=== PATIENT | male | born 1985 | race Caucasian/White ===

== ENCOUNTER 2017-09-22 01:26 | Outpatient (CLI) | payer OTHER | END 2017-09-22 01:27 | disposition critical access hospital (66) | LOC: EMS 01:26 | PROVIDERS: ATTEND Surgery | DX: R51 Headache (principal) | CPT/HCPCS: A0425; A0429 ==

== ENCOUNTER 2017-09-22 01:42 | Emergency (ER) | payer OTHER ==
[2017-09-22] MEDS ORDERED: DEXAMETHASONE 10 MG/ML VIAL IVP STA (01:54)
[2017-09-22] MEDS ORDERED: cefTRIAXone 1 GM in SODIUM CHLORIDE 0.9% MINIBAG 100 ML IV STA (01:54)
[2017-09-22] MEDS ORDERED: MECLIZINE 12.5 MG TABLET PO STA (01:55)
--- NOTE | 2017-09-22 02:00 | ED Physician Documentation ---
PD HPI HEADACHE - Stated complaint Stated Complaint: DIZZY/MARTÍNEZ - Chief complaint Chief Complaint: Neuro - History obtained from History obtained from: Patient, Family, EMS - History of Present Illness Timing - onset: Today Timing - onset during: Rest Timing - duration: Hours Timing - details: Gradual onset, Still present, Waxing and waning Location: Front Quality: Throbbing Associated symptoms: Other (left hearing loss and fullness and pressure in the head.). No: Nausea Improved by: Dark room, Quiet Worsened by: Moving Contributing factors: No: Anticoagulated Similar symptoms before: Has not had sx before Recently seen: Surgery - Additional information Additional information: 31-year-old male is been sick for the past 2 weeks with a cough and congestion and sinus pain. He has had a recent surgical removal of a cyst on his right cheek and that appears to be healing well without is issue without drainage or tenderness or pain. Tonight he is developed severe dizziness and hearing loss in the left ear as well as a full full feeling of fullness. He has a severe headache that comes and goes and feels like a balloon blowing up inside of his head. Review of Systems Constitutional: denies: Fever Eyes: denies: Decreased vision Ears: reports: Loss of hearing, Ear pain. denies: Drainage/discharge Nose: reports: Rhinorrhea / runny nose, Congestion, Sinus pressure / pain Throat: reports: Sore throat Cardiac: denies: Chest pain / pressure, Palpitations Respiratory: reports: Cough. denies: Dyspnea GI: denies: Abdominal Pain, Nausea, Vomiting : denies: Dysuria, Frequency Skin: denies: Rash Musculoskeletal: denies: Neck pain, Back pain, Extremity pain Neurologic: reports: Headache, Other (profound dizziness). denies: Generalized weakness, Focal weakness, Numbness, Head injury, LOC PD PAST MEDICAL HISTORY - Past Medical History Past Medical History: No - Past Surgical History Past Surgical History: No - Present Medications Home Medications: Ambulatory Orders Medication Instructions Recorded Confirmed Amox/Clav 875/125 [Augmentin] 1 each PO Q12H #20 tablet 09/22/17 Dexamethasone [Decadron] 4 mg PO DAILY #5 tablet 09/22/17 - Allergies Allergies/Adverse Reactions: Allergies Allergy/AdvReac Type Severity Reaction Status Date / Time No Known Drug Allergies Allergy Verified 09/22/17 01:55 - Social History Does the pt smoke?: No Smoking Status: Never smoker Does the pt drink ETOH?: Yes Does the pt have substance abuse?: No - Immunizations Immunizations are current?: Yes - POLST Patient has POLST: No PD ED PE NORMAL - Vitals Vital signs reviewed: Yes (hypertensive) - General General: Alert and oriented X 3, No acute distress, Well developed/nourished, Other (The patient does have marked dizziness with any movement or sitting up. ) - HEENT HEENT: Atraumatic, PERRL, EOMI, Other (Right TM is inflamed with flatenning of the landmarks. The left is not inflamed with flattening of the landmarks. The pharynx is with 2+ tonsils and dry mucous membranes. There are 3 beats of nystagmus bilaterally. ) - Neck Neck: Supple, no meningeal sign, No bony TTP - Cardiac Cardiac: RRR, No murmur - Respiratory Respiratory: No respiratory distress, Clear bilaterally - Abdomen Abdomen: Soft, Non tender - Back Back: No CVA TTP, No spinal TTP - Derm Derm: Normal color, Warm and dry, No rash - Extremities Extremities: No deformity, No edema - Neuro Neuro: Alert and oriented X 3, client service coordinator 2-12 intact, No motor deficit, No sensory deficit, Normal speech Eye Opening: Spontaneous Motor: Obeys Commands Verbal: Oriented GCS Score: 15 - Psych Psych: Normal mood, Normal affect Results - Vitals Vitals: Vital Signs - 24 hr 09/22/17 09/22/17 09/22/17 01:45 02:41 03:35 Temperature 37.4 C Heart Rate 95 68 94 Respiratory 23 15 24 Rate Blood Pressure 138/92 H 123/78 84/69 L O2 Saturation 100 96 96 09/22/17 03:54 Temperature Heart Rate 76 Respiratory 18 Rate Blood Pressure 112/68 O2 Saturation 99 Oxygen O2 Source Room air - Labs Labs: Laboratory Tests 09/22/17 09/22/17 02:05 02:05 WBC 9.7 RBC 4.30 L Hgb 13.4 L Hct 39.7 L MCV 92.2 MCH 31.2 H MCHC 33.9 RDW 12.8 Plt Count 293 MPV 7.6 Neut # 6.2 Lymph # 2.2 [place] # 1.0 Eos # 0.1 Baso # 0.1 Absolute Nucleated RBC 0.00 Nucleated RBC % 0.0 Sodium 137 Potassium 2.9 L Chloride 107 Carbon Dioxide 21 Anion Gap 9.0 BUN 14 Creatinine 0.8 Estimated GFR (MDRD) 113 Glucose 148 H Calcium 9.0 Total Bilirubin 0.6 AST 13 ALT 15 Alkaline Phosphatase 50 Total Protein 7.3 Albumin 4.1 Globulin 3.2 Albumin/Globulin Ratio 1.3 Lipase 18 L - Rads (name of study) CT head without Radiology: Prelim report reviewed (Impression: 1. Paranasal sinus disease. 2. Otherwise normal head CT.), EMP read indepedently, See rad report CT sinuses Radiology: Prelim report reviewed (Impression: 1. Acute appearing left sphenoid sinus disease.), EMP read indepedently, See rad report Procedures - IVC sono (time) 0155 Bedside IVC sono: IVC measures (cm) (1.87), IVC collapsed c insp (cm) (0.89), Euvolemia PD MEDICAL DECISION MAKING - ED course Complexity details: reviewed results, re-evaluated patient, considered differential, d/w patient, d/w family ED course: 31-year-old male presents with dramatic dizziness and severe ballooning headache associated with a cough and congestion for the past 2 weeks. He was well earlier in the day as far as the dizziness or headache and the headache came on rapidly this evening. He woke from sleep and told his had to go to the hospital. When he arrived here he had nystagmus was profoundly dizzy with any movement of his head and complained of hearing loss in the left ear and pressure. On examination he did have the appearance of right otitis and he was administered intravenous dexamethasone and Rocephin. He had some improvement in his headache with intravenous Toradol and further improvement with intravenous dilaudid. He had marked improvement in his dizziness with use of the meclizine. At the conclusion of his visit he felt marked improvement. I did do testing on his hearing in the left ear with a 512 Hz tuning fork. He was able to hear 4 seconds over the mastoid on the left side and with conduction 30 seconds. On the right ear he was able to hear 13 seconds over the mastoid and 32 seconds by conduction. My interpretation of this is he has normal hearing in the right ear and some sensorineural hearing loss in the left ear and I have asked the patient to follow up with ENT. Departure - Departure Disposition: 01 Home, Self Care Clinical Impression: Sphenoid sinusitis Qualifiers: Chronicity: acute Recurrence: not specified as recurrent Qualified Code(s): J01.30 - Acute sphenoidal sinusitis, unspecified Otitis media Qualifiers: Otitis media type: suppurative Chronicity: acute Laterality: right Recurrence: not specified as recurrent Spontaneous tympanic membrane rupture: without spontaneous rupture Qualified Code(s): H66.001 - Acute suppurative otitis media without spontaneous rupture of ear drum, right ear Hearing loss in left ear Qualifiers: Hearing loss type: sensorineural Contralateral hearing status: unrestricted hearing on contralateral side Qualified Code(s): H90.42 - Sensorineural hearing loss, unilateral, left ear, with unrestricted hearing on the contralateral side Condition: Stable Instructions: ED Otitis Media Acute Adult, ED Sinusitis Abx Tx Follow-Up: [facility] [Provider Group] [facility] [Provider Group] Prescriptions: Amox/Clav 875/125 [Augmentin] 1 each PO Q12H #20 tablet Dexamethasone [Decadron] 4 mg PO DAILY #5 tablet Forms: Activity restrictions Discharge Date/Time: 09/22/17 03:50
[2017-09-22 02:11] LABS: BASOPHILS # (AUTO) 0.1 10^3/uL (0.0-0.1); BASOPHILS % (AUTO) 1.2 %; EOSINOPHILS # (AUTO) 0.1 10^3/uL (0.0-0.7); HCT - HEMATOCRIT 39.7 % (42.0-52.0); HGB - HEMOGLOBIN 13.4 g/dL (14.0-18.0); LYMPHOCYTES # (AUTO) 2.2 10^3/uL (1.5-3.5); LYMPHOCYTES % (AUTO) 23.3 %; MEAN CORPUSCULAR HEMOGLOBIN 31.2 pg (27.0-31.0); MEAN CORPUSCULAR HGB CONC 33.9 g/dL (32.0-36.0); MEAN CORPUSCULAR VOLUME 92.2 fL (80.0-94.0); MEAN PLATELET VOLUME 7.6 fL (7.4-11.4); MONOCYTES % (AUTO) 10.2 %; NEUTROPHILS # (AUTO) 6.2 10^3/uL (1.5-6.6); NEUTROPHILS % (AUTO) 64.3 %; RED CELL DISTRIBUTION WIDTH 12.8 % (12.0-15.0); UNCORRECTED WHITE BLOOD COUNT 9.7 x10^3/uL; WHITE BLOOD COUNT 9.7 x10^3/uL (4.8-10.8)
[2017-09-22 02:22] LABS: ALBUMIN/GLOBULIN RATIO 1.3 (1.0-2.2); BILIRUBIN,TOTAL 0.6 mg/dL (0.2-1.0); CREATININE 0.8 mg/dL (0.6-1.2); POTASSIUM 2.9 mmol/L (3.5-5.0); TOTAL PROTEIN 7.3 g/dL (6.7-8.2)
[2017-09-22] MEDS ORDERED: KETOROLAC 60 MG/2 ML VIAL IVP STA (02:39)
[2017-09-22] MEDS ORDERED: POTASSIUM BICARB 25 MEQ TABLET PO STA (02:40)
[2017-09-22] MEDS ORDERED: ONDANSETRON 4 MG/2 ML VIAL IVP STA (03:10)
[2017-09-22] MEDS ORDERED: HYDROmorphone 1 MG/ML SYRINGE IVP STA (03:10)
--- NOTE | 2017-09-22 03:24 | CT Preliminary Report ---
Exam: CT HEAD W/O IMPRESSION: 1. Paranasal sinus disease. 2. Otherwise normal head CT. [facility] SITE ID: [id number]
--- NOTE | 2017-09-22 03:27 | CT Report ---
EXAM: CT HEAD EXAM DATE: 09/22/2017 02:28 AM. CLINICAL HISTORY: headache , dizziness, hearing loss and pressure . COMPARISON: None. TECHNIQUE: Multiaxial CT images were obtained from the foramen magnum to the vertex. Reformats: Coron al. IV contrast: None. In accordance with CT protocol optimization, one or more of the following dose reduction techniques w ere utilized for this exam: automated exposure control, adjustment of mA and/or KV based on patient s ize, or use of iterative reconstructive technique. FINDINGS: Parenchyma: No intraparenchymal hemorrhage. No evidence of mass, midline shift, or CT findings of inf arction. Uribe-white differentiation is distinct. Extraaxial Spaces: Normal for age. No subdural or epidural collections identified. Ventricles: Normal in size and position. Sinuses and Orbits: There is paranasal sinus mucosal thickening and there is a sphenoid sinus fluid l evel. Bones: No evidence of fracture or calvarial defect. Other: None. IMPRESSION: 1. Paranasal sinus disease. 2. Otherwise normal head CT. [facility] Referring Provider Line: [phone] SITE ID: [id number]
--- NOTE | 2017-09-22 03:28 | CT Preliminary Report ---
Exam: CT SINUSES IMPRESSION: 1. Acute appearing left sphenoid sinus disease. [facility] SITE ID: [id number]
--- NOTE | 2017-09-22 03:30 | CT Report ---
EXAM: CT SINUS EXAM DATE: 09/22/2017 02:29 AM. HISTORY: Headache, dizziness, left-sided hearing loss COMPARISONS: None. TECHNIQUE: Routine multi-axial CT imaging performed through the sinuses. Iodinated IV contrast: None. Reconstructions: Coronal. In accordance with CT protocol optimization, one or more of the following dose reduction techniques w ere utilized for this exam: automated exposure control, adjustment of mA and/or KV based on patient s ize, or use of iterative reconstructive technique. FINDINGS: RIGHT Frontal: There is mild mucosal thickening.. Ethmoid: There is mucosal thickening of multiple ethmoid air cells. Maxillary: There is mild mucosal thickening. Sphenoid: There is mild mucosal thickening. LEFT Frontal: There is mild mucosal thickening.. Ethmoid: There is mucosal thickening and opacification of multiple left ethmoid air cells. Maxillary: There is mild mucosal thickening. Sphenoid: There is moderate mucosal thickening and there is a fluid level. Ostiomeatal units are narrowed by mucosal thickening. Nasal Cavity: Normal. No mass or significant anatomic abnormality evident. Osseous Structures: Unremarkable. Orbits: Unremarkable. Other: Mastoid air cells are well-aerated. Middle ears normally aerated.. IMPRESSION: 1. Acute appearing left sphenoid sinus disease. [facility] Referring Provider Line: [phone] SITE ID: [id number]
[2017-09-22] MEDS ORDERED: POTASSIUM CHLORIDE 20 MEQ TABLET PO STA (03:54)
[2017-09-22 04:00] VITALS: BP 112/68
== END 2017-09-22 03:50 | disposition home or self-care (01) ==
LOC: ED 01:42
DX: J01.30 Acute sphenoidal sinusitis, unspecified (principal); H66.001 Acute suppurative otitis media without spontaneous rupture of ear drum, right ear; H90.42 Sensorineural hearing loss, unilateral, left ear, with unrestricted hearing on the contralateral side
CPT/HCPCS: 36415; 70450; 70486; 80053; 83690; 85025; 96365; 96375; 99284; A9270; J1170